=== PATIENT | male | born 1965 | race African-American/Black ===

== ENCOUNTER 2018-08-21 08:59 | Inpatient (IN) ==
[2018-08-21] MEDS ORDERED: ASPIRIN 325 MG TABLET PO STA (09:11)
[2018-08-21] MEDS ORDERED: NITROGLYCERIN 2% OINT 1 INCH/GM PACK TOP STA (09:33)
[2018-08-21] MEDS ORDERED: MORPHINE 4 MG/1 ML VIAL IV STA (09:33)
[2018-08-21] MEDS ORDERED: ONDANSETRON 4 MG/2 ML VIAL IV STA (09:33)
[2018-08-21] MEDS ORDERED: ALUM/MAG/SIMETH/LIDO VISC 1:1 30 ML BOTTLE PO STA (09:33)
[2018-08-21 09:45] LABS: Basophils # 0.1 10*3/uL (0.0-0.2); Basophils % 0.9 % (0.0-0.8); Eosinophils % 0.4 % (0.00-10.9); Hematocrit 35.4 VOL% (42.0-52.0); Hemoglobin 12.3 GM/DL (14.0-18.0); Immature Granulocytes % 0.6 %; Immature Granulocytes Absolute 0.04 #; Lymphocytes # 2.6 10*3/uL (1.4-4.0); Lymphocytes % 38.7 % (21.2-54.2); Mean Corpuscular HGB Conc 34.7 GM/DL (32-36); Mean Corpuscular Volume 92.7 FL (87-102); Mean Platelet Volume 11.3 FL (9.6-12.0); Monocytes % 13.5 % (1.7-12.7); NRBC # 0.03 10*3/uL; Neutrophils % 45.9 % (38.7-73.9); Platelet Count 115 T/CUMM (130-400); Red Blood Count 3.82 MC/CUMM (3.8-5.5); Red Cell Distribution Width 17.3 % (9.3-17.3); White Blood Count 6.7 T/CUMM (4-12)
[2018-08-21 09:52] LABS: INR 1.2; PT Patient Result 13.1 SECS
[2018-08-21 10:12] LABS: Albumin 3.8 G/DL (3.4-5.0); Bilirubin,Total 1.3 MG/DL (0.2-1.0); Calcium 9.1 MG/DL (8.5-10.1); Osmolality,Calculated 275.4 MOS/KG (273-304); Total Protein 9.2 G/DL (6.4-8.3)
[2018-08-21] MEDS ORDERED: THIAMINE INJ 100 MG, FOLIC ACID INJ 1 MG, MAGNESIUM SULF INJ 2 GM, MULTIVITAMIN INJ 10 ... IV ONE (10:44)
[2018-08-21 10:49] LABS: Apearance,Urine CLEAR (Clear); Bilirubin,Urine Negative (Negative); Blood, Urine Small mg/dL (Negative); Glucose,Urine (UA) Negative (Negative); Ketones,Urine 5 mg/dL (Negative); Nitrite,Urine Negative (Negative); Protein,Urine 100 MG/DL; RBC,Urine 9 /HPF (0-4); Squamous Epithelial Cell,Urine Occasional /HPF (0-10); Urine Color Yellow (Yellow); Urine Specific Gravity 1.011 (1.001-1.035); WBC,Urine 1 /HPF (0-6)
[2018-08-21 10:58] LABS: Barbiturates Screen,Urine Negative (Negative); Benzodiazepines Screen,Urine Negative (Negative); Cannabinoid Screen,Urine Negative (Negative); Opiate Screen,Urine Negative (Negative); Phencyclidine Screen,Urine Negative (Negative)
[2018-08-21] MEDS ORDERED: MORPHINE 4 MG/1 ML VIAL IV PRN (11:50)
[2018-08-21] MEDS ORDERED: BISACODYL 5 MG TABLET PO PRN (11:50)
[2018-08-21] MEDS ORDERED: ONDANSETRON 4 MG/2 ML VIAL IV PRN (11:50)
[2018-08-21] MEDS ORDERED: LORazepam 2 MG/1 ML VIAL IV PRN (11:57)
[2018-08-21] MEDS ORDERED: MAGNESIUM SULF RIDER 2 GM in PREMIX 1 EACH IV PRN (12:15)
[2018-08-21] MEDS ORDERED: MAGNESIUM SULF RIDER 4 GM in PREMIX 1 EACH IV PRN (12:15)
[2018-08-21 12:46] LABS: INR 1.2; PT Patient Result 13.2 SECS
[2018-08-21 12:47] LABS: Risk Ratio 5.12; VLDL CHOLESTEROL 21.8 MG/DL
[2018-08-21] MEDS: ENOXAPARIN 40 MG/0.4 ML SYRINGE SUBCUT SCH (13:49)
[2018-08-21] MEDS: SODIUM CHLORIDE 0.9% 1,000 ML IV SCH (13:49)
[2018-08-21] MEDS: chlordiazePOXIDE 25 MG CAPSULE PO SCH ×3 (17:49→20:55)
[2018-08-21 20:33] LABS: Hepatitis B Core IgM Quant 1.14 Index; Hepatitis B Surface Ag Quant < 0.10 Index; Hepatitis B Surface Ag Result Negative (Negative); Hepatitis C Virus Ab Quant 0.14 Index; Hepatitis C Virus Ab Result Negative (Negative)
[2018-08-21] MEDS: PANTOPRAZOLE 40 MG TABLET PO SCH (20:55)
[2018-08-22 05:59] LABS: Basophils % 0.6 % (0.0-0.8); Eosinophils # 0.1 10*3/uL (0.0-0.87); Eosinophils % 1.2 % (0.00-10.9); Hematocrit 30.9 VOL% (42.0-52.0); Hemoglobin 10.3 GM/DL (14.0-18.0); Immature Granulocytes % 0.4 %; Immature Granulocytes Absolute 0.02 #; Lymphocytes # 1.8 10*3/uL (1.4-4.0); Lymphocytes % 35.5 % (21.2-54.2); Mean Corpuscular HGB Conc 33.3 GM/DL (32-36); Mean Corpuscular Volume 94.8 FL (87-102); Mean Platelet Volume 12.2 FL (9.6-12.0); Monocytes % 15.9 % (1.7-12.7); NRBC # 0.03 10*3/uL; Neutrophils % 46.4 % (38.7-73.9); Platelet Count 93 T/CUMM (130-400); Red Blood Count 3.26 MC/CUMM (3.8-5.5); Red Cell Distribution Width 16.9 % (9.3-17.3)
[2018-08-22 06:35] LABS: Anisocytosis 2+; Band Neutrophils 2 % (0-10); Eosinophils 4 % (0-10); Hypochromasia 2+; Lymphocytes 43 % (20-55); Microcytosis 1+; Ovalocytes 1+; Platelet Estimate Decreased; Segmented Neutrophils 47 % (50-85); Smudge Cells Few; Target Cells 2+; Total Cells Counted 100
[2018-08-22 06:45] LABS: Albumin 2.6 G/DL (3.4-5.0); Bilirubin,Total 1.8 MG/DL (0.2-1.0); Calcium 7.8 MG/DL (8.5-10.1); Osmolality,Calculated 273.5 MOS/KG (273-304)
[2018-08-22] MEDS ORDERED: PROPOFOL 200 MG/20 ML VIAL IV ONE (09:00)
[2018-08-22] MEDS ORDERED: LIDOCAINE 2% 5 ML VIAL ONE (09:00)
[2018-08-22] MEDS ORDERED: ETOMIDATE 20 MG/10 ML VIAL IV ONE (09:00)
[2018-08-22] MEDS: chlordiazePOXIDE 25 MG CAPSULE PO SCH ×4 (09:24→21:00)
[2018-08-22] MEDS: SODIUM CHLORIDE 0.9% 1,000 ML IV SCH ×3 (09:25→18:19)
[2018-08-22] MEDS: MULTIVITAMIN (CENTRUM) TABLET PO SCH (14:06)
[2018-08-22] MEDS: ENOXAPARIN 40 MG/0.4 ML SYRINGE SUBCUT SCH (14:06)
[2018-08-22] MEDS: FOLIC ACID 1 MG TABLET PO SCH (14:06)
[2018-08-22] MEDS: PANTOPRAZOLE 40 MG TABLET PO SCH ×2 (14:06→21:00)
[2018-08-22] MEDS: THIAMINE 100 MG TABLET PO SCH (14:06)
[2018-08-23] MEDS: SODIUM CHLORIDE 0.9% 1,000 ML IV SCH ×2 (06:43→06:53)
[2018-08-23] MEDS: chlordiazePOXIDE 25 MG CAPSULE PO SCH (09:00)
[2018-08-23] MEDS: PANTOPRAZOLE 40 MG TABLET PO SCH (09:01)
[2018-08-23] MEDS: FOLIC ACID 1 MG TABLET PO SCH (09:01)
[2018-08-23] MEDS: MULTIVITAMIN (CENTRUM) TABLET PO SCH (09:01)
[2018-08-23] MEDS: THIAMINE 100 MG TABLET PO SCH (09:01)
[2018-08-23 11:42] VITALS: BP 105/64
== END 2018-08-23 12:00 | disposition home or self-care (01) | DRG 392 ==
LOC: EDBD → N.ED 08:59 → N.EDINP 11:50 → N.TELES 15:23
PROVIDERS: ADMIT Internal Medicine; ATTEND Internal Medicine

== ENCOUNTER 2019-04-25 16:36 | Inpatient (IN) ==
[2019-04-25] MEDS ORDERED: SODIUM CHLORIDE 0.9% 1,000 ML IV STA (17:24)
[2019-04-25] MEDS ORDERED: ONDANSETRON 4 MG/2 ML VIAL IV STA (17:25)
[2019-04-25 17:38] LABS: INR 1.5; PT Patient Result 15.9 SECS (9.6-12.2); Partial Thromboplastin Time 33.2 SECS (20.8-36.0)
[2019-04-25 17:39] LABS: Basophils # 0.1 10*3/uL (0.0-0.2); Basophils % 0.5 % (0.0-0.8); Eosinophils % 0.3 % (0.00-10.9); Hematocrit 28.4 VOL% (42.0-52.0); Hemoglobin 9.9 GM/DL (14.0-18.0); Immature Granulocytes % 0.4 %; Immature Granulocytes Absolute 0.04 #; Lymphocytes # 4.3 10*3/uL (1.4-4.0); Lymphocytes % 46.8 % (21.2-54.2); Mean Corpuscular HGB Conc 34.9 GM/DL (32-36); Mean Corpuscular Volume 90.7 FL (87-102); Monocytes % 11.1 % (1.7-12.7); NRBC # 0.04 10*3/uL; Neutrophils % 40.9 % (38.7-73.9); Red Blood Count 3.13 MC/CUMM (3.8-5.5); Red Cell Distribution Width 19.1 % (9.3-17.3); White Blood Count 9.2 T/CUMM (4-12)
[2019-04-25] MEDS ORDERED: METOCLOPRAMIDE 10 MG/2 ML VIAL IV STA (17:40)
[2019-04-25] MEDS ORDERED: PANTOPRAZOLE 40 MG VIAL IV STA (17:40)
[2019-04-25 17:44] LABS: Platelet Count 68 T/CUMM (130-400)
[2019-04-25 17:45] LABS: Albumin 2.7 G/DL (3.4-5.0); Bilirubin,Total 1.9 MG/DL (0.2-1.0); Calcium 8.3 MG/DL (8.5-10.1); Osmolality,Calculated 267.1 MOS/KG (273-304); Total Protein 8.3 G/DL (6.4-8.3)
[2019-04-25 18:16] LABS: Hypochromasia 1+; Platelet Estimate Decreased; Polychromasia Few; Target Cells 1+
[2019-04-25 18:42] LABS: Apearance,Urine CLEAR (Clear); Bacteria,Urine Occasional /HPF (Few); Bilirubin,Urine Small mg/dL (Negative); Blood, Urine Small mg/dL (Negative); Glucose,Urine (UA) Negative (Negative); Ketones,Urine 20 mg/dL (Negative); Mucus,Urine Occasional /LPF (Occasional); Nitrite,Urine Negative (Negative); Protein,Urine 100 MG/DL; RBC,Urine 6 /HPF (0-4); Squamous Epithelial Cell,Urine Occasional /HPF (0-10); Urine Color Yellow (Yellow); Urine Specific Gravity 1.023 (1.001-1.035); WBC,Urine 11 /HPF (0-6)
[2019-04-25 18:51] LABS: Barbiturates Screen,Urine Negative (Negative); Benzodiazepines Screen,Urine Negative (Negative); Cannabinoid Screen,Urine Negative (Negative); Opiate Screen,Urine Negative (Negative); Phencyclidine Screen,Urine Negative (Negative)
[2019-04-25] MEDS ORDERED: ONDANSETRON 4 MG/2 ML VIAL IV PRN (19:30)
[2019-04-25] MEDS ORDERED: LORazepam 2 MG/1 ML VIAL IV PRN (19:35)
[2019-04-25] MEDS ORDERED: chlordiazePOXIDE 25 MG CAPSULE PO PRN (19:35)
[2019-04-25] MEDS ORDERED: LABETALOL 20 MG/4 ML SYRINGE IV PRN (19:39)
[2019-04-25] MEDS ORDERED: LACTULOSE 20 GM/30 ML UDCUP PO PRN (19:43)
[2019-04-25] MEDS ORDERED: SODIUM CHLORIDE 0.9% 1,000 ML IV PRN ×2 (20:09→20:11)
[2019-04-25] MEDS ORDERED: cefTRIAXone 1,000 MG VIAL ONE (20:27)
[2019-04-25] MEDS: cefTRIAXone 1,000 MG in SYRINGE 1 EACH IV SCH (20:30)
[2019-04-25] MEDS: DEXTROSE 5% NACL 0.45% 1,000 ML IV SCH (20:32)
[2019-04-25] MEDS ORDERED: OCTREOTIDE 500 MCG in SODIUM CHLORIDE 0.9% 100 ML IV SCH (21:00)
[2019-04-25] MEDS ORDERED: PANTOPRAZOLE INJ 200 MG in SODIUM CHLORIDE 0.9% 250 ML IV SCH (21:00)
[2019-04-25 21:13] LABS: Troponin I 0.503 NG/ML (0.00-0.045)
[2019-04-25 21:41] LABS: Folate 5.8 NG/ML (5.4-24.0)
[2019-04-25] MEDS: DOCUSATE SODIUM 100 MG/10 ML UDCUP PO SCH (22:02)
[2019-04-25] MEDS: PROMETHAZINE 25 MG/1 ML VIAL IM PRN (22:16)
[2019-04-26 03:16] LABS: Basophils % 0.3 % (0.0-0.8); Eosinophils % 0.1 % (0.00-10.9); Hemoglobin 7.7 GM/DL (14.0-18.0); Immature Granulocytes % 0.4 %; Immature Granulocytes Absolute 0.03 #; Lymphocytes % 29.1 % (21.2-54.2); Mean Corpuscular HGB Conc 33.5 GM/DL (32-36); Mean Corpuscular Volume 94.3 FL (87-102); Monocytes % 12.1 % (1.7-12.7); NRBC # 0.03 10*3/uL; Platelet Count 50 T/CUMM (130-400); Red Blood Count 2.44 MC/CUMM (3.8-5.5); Red Cell Distribution Width 17.3 % (9.3-17.3)
[2019-04-26 03:30] LABS: INR 1.6; PT Patient Result 17.6 SECS (9.6-12.2)
[2019-04-26 03:37] LABS: Troponin I 0.458 NG/ML (0.00-0.045)
[2019-04-26 03:37] LABS: Albumin 2.1 G/DL (3.4-5.0); Bilirubin,Total 2.2 MG/DL (0.2-1.0); Calcium 7.4 MG/DL (8.5-10.1); Osmolality,Calculated 277.7 MOS/KG (273-304); Total Protein 6.1 G/DL (6.4-8.3)
[2019-04-26 03:49] LABS: Band Neutrophils 1 % (0-10); Eosinophils 1 % (0-10); Lymphocytes 26 % (20-55); Nucleated Red Blood Cells 1 (0-5); Segmented Neutrophils 63 % (50-85); Total Cells Counted 100
[2019-04-26 03:50] LABS: Hypochromasia 1+; Platelet Estimate Decreased
[2019-04-26] MEDS ORDERED: SODIUM CHLORIDE 0.9% 1,000 ML IV PRN (04:00)
[2019-04-26 05:03] LABS: Hepatitis B Surface Ag Quant 0.17 Index; Hepatitis B Surface Ag Result Negative (Negative); Hepatitis C Virus Ab Quant 0.09 Index; Hepatitis C Virus Ab Result Negative (Negative)
[2019-04-26] MEDS: PROMETHAZINE 25 MG/1 ML VIAL IM PRN (05:04)
[2019-04-26] MEDS ORDERED: NOREPINEPHRINE 8 MG in SODIUM CHLORIDE 0.9% 242 ML IV PRN (05:50)
[2019-04-26] MEDS ORDERED: SODIUM CHLORIDE 0.9% 500 ML IV ONE (05:50)
[2019-04-26] MEDS: DEXTROSE 5% NACL 0.45% 1,000 ML IV SCH ×2 (06:30→15:13)
[2019-04-26 07:16] LABS: Hepatitis B Core IgM Quant 0.74 Index
[2019-04-26] MEDS ORDERED: ETOMIDATE 20 MG/10 ML VIAL IV ONE (09:00)
[2019-04-26] MEDS ORDERED: LIDOCAINE 2% 5 ML VIAL ONE (09:00)
[2019-04-26] MEDS ORDERED: propofoL 200 MG/20 ML VIAL IV ONE (09:00)
[2019-04-26] MEDS ORDERED: LACTATED RINGERS 1,000 ML IV SCH (10:00)
[2019-04-26] MEDS: MULTIVITAMIN (CENTRUM) TABLET PO SCH (10:15)
[2019-04-26] MEDS: DOCUSATE SODIUM 100 MG/10 ML UDCUP PO SCH ×2 (10:15→20:50)
[2019-04-26] MEDS: FOLIC ACID 1 MG TABLET PO SCH (10:19)
[2019-04-26] MEDS: THIAMINE 200 MG/2 ML VIAL IV SCH (10:26)
[2019-04-26] MEDS: LACTULOSE 20 GM/30 ML UDCUP PO SCH ×3 (10:27→20:50)
[2019-04-26] MEDS ORDERED: MIDAZOLAM 2 MG/2 ML VIAL ONE (11:37)
[2019-04-26 14:35] LABS: Hematocrit 20.8 VOL% (42.0-52.0); Hemoglobin 7.2 GM/DL (14.0-18.0)
[2019-04-26] MEDS: SODIUM CHLORIDE 0.9% 1,000 ML IV SCH (15:15)
[2019-04-26] MEDS: chlordiazePOXIDE 10 MG CAPSULE PO SCH ×2 (15:23→20:49)
[2019-04-26] MEDS: PROPRANOLOL 10 MG TABLET PO SCH ×2 (15:23→20:49)
[2019-04-26] MEDS: cefTRIAXone 1,000 MG in SYRINGE 1 EACH IV SCH (20:50)
[2019-04-26] MEDS: PANTOPRAZOLE 40 MG TABLET PO SCH (20:52)
[2019-04-26 23:25] LABS: Hematocrit 26.8 VOL% (42.0-52.0); Hemoglobin 9.1 GM/DL (14.0-18.0)
[2019-04-27] MEDS: SODIUM CHLORIDE 0.9% 1,000 ML IV SCH ×3 (01:31→12:53)
[2019-04-27 05:39] LABS: Calcium 7.4 MG/DL (8.5-10.1); Osmolality,Calculated 274.5 MOS/KG (273-304)
[2019-04-27 05:41] LABS: Basophils # 0.1 10*3/uL (0.0-0.2); Basophils % 0.6 % (0.0-0.8); Eosinophils # 0.1 10*3/uL (0.0-0.87); Eosinophils % 1.3 % (0.00-10.9); Hematocrit 27.6 VOL% (42.0-52.0); Hemoglobin 9.6 GM/DL (14.0-18.0); Immature Granulocytes % 0.5 %; Immature Granulocytes Absolute 0.05 #; Lymphocytes # 3.2 10*3/uL (1.4-4.0); Lymphocytes % 34.4 % (21.2-54.2); Mean Corpuscular HGB Conc 34.8 GM/DL (32-36); Mean Corpuscular Volume 87.9 FL (87-102); Mean Platelet Volume 11.6 FL (9.6-12.0); Monocytes % 8.8 % (1.7-12.7); Neutrophils % 54.4 % (38.7-73.9); Platelet Count 56 T/CUMM (130-400); Red Blood Count 3.14 MC/CUMM (3.8-5.5); White Blood Count 9.4 T/CUMM (4-12)
[2019-04-27 05:45] LABS: Albumin 1.8 G/DL (3.4-5.0); Bilirubin,Total 2.8 MG/DL (0.2-1.0); Calcium 7.4 MG/DL (8.5-10.1); Osmolality,Calculated 274.5 MOS/KG (273-304); Total Protein 5.4 G/DL (6.4-8.3)
[2019-04-27 06:30] LABS: Anisocytosis 3+; Platelet Estimate Decreased; Target Cells Few
[2019-04-27 06:31] LABS: Polychromasia Slight
[2019-04-27] MEDS: MULTIVITAMIN (CENTRUM) TABLET PO SCH (08:54)
[2019-04-27] MEDS: PROPRANOLOL 10 MG TABLET PO SCH ×3 (08:54→21:10)
[2019-04-27] MEDS: chlordiazePOXIDE 10 MG CAPSULE PO SCH ×3 (08:54→21:11)
[2019-04-27] MEDS: PANTOPRAZOLE 40 MG TABLET PO SCH ×2 (08:54→21:11)
[2019-04-27] MEDS: THIAMINE 200 MG/2 ML VIAL IV SCH (08:55)
[2019-04-27] MEDS: LACTULOSE 20 GM/30 ML UDCUP PO SCH ×3 (09:54→21:11)
[2019-04-27] MEDS: DOCUSATE SODIUM 100 MG/10 ML UDCUP PO SCH ×2 (09:55→21:11)
[2019-04-27] MEDS: FOLIC ACID 1 MG TABLET PO SCH (09:56)
[2019-04-27] MEDS: cefTRIAXone 1,000 MG in SYRINGE 1 EACH IV SCH (21:10)
[2019-04-28 06:55] LABS: Basophils % 0.5 % (0.0-0.8); Eosinophils # 0.1 10*3/uL (0.0-0.87); Eosinophils % 1.5 % (0.00-10.9); Hematocrit 25.3 VOL% (42.0-52.0); Hemoglobin 8.6 GM/DL (14.0-18.0); Immature Granulocytes % 0.7 %; Immature Granulocytes Absolute 0.06 #; Lymphocytes # 2.6 10*3/uL (1.4-4.0); Lymphocytes % 30.1 % (21.2-54.2); Mean Corpuscular Volume 89.1 FL (87-102); Mean Platelet Volume 11.2 FL (9.6-12.0); Monocytes % 10.7 % (1.7-12.7); NRBC # 0.09 10*3/uL; Neutrophils % 56.5 % (38.7-73.9); Platelet Count 66 T/CUMM (130-400); Red Blood Count 2.84 MC/CUMM (3.8-5.5); Red Cell Distribution Width 16.8 % (9.3-17.3); White Blood Count 8.6 T/CUMM (4-12)
[2019-04-28 07:19] LABS: Bilirubin,Total 2.7 MG/DL (0.2-1.0); Calcium 7.4 MG/DL (8.5-10.1); Osmolality,Calculated 272.7 MOS/KG (273-304); Total Protein 5.6 G/DL (6.4-8.3)
[2019-04-28 09:17] LABS: Anisocytosis 2+; Hypochromasia 1+; Macrocytosis 1+; Microcytosis 1+; Polychromasia Slight; Target Cells 2+
[2019-04-28 09:18] LABS: Platelet Estimate Decreased
[2019-04-28] MEDS: THIAMINE 200 MG/2 ML VIAL IV SCH (10:00)
[2019-04-28] MEDS: LACTULOSE 20 GM/30 ML UDCUP PO SCH (10:00)
[2019-04-28] MEDS: chlordiazePOXIDE 10 MG CAPSULE PO SCH (10:01)
[2019-04-28] MEDS: DOCUSATE SODIUM 100 MG/10 ML UDCUP PO SCH (10:01)
[2019-04-28] MEDS: PROPRANOLOL 10 MG TABLET PO SCH (10:01)
[2019-04-28] MEDS: PANTOPRAZOLE 40 MG TABLET PO SCH (10:01)
[2019-04-28] MEDS: MULTIVITAMIN (CENTRUM) TABLET PO SCH (10:01)
[2019-04-28] MEDS: FOLIC ACID 1 MG TABLET PO SCH (10:01)
[2019-04-28 12:15] VITALS: BP 112/66
== END 2019-04-28 13:58 | disposition home or self-care (01) | DRG 368 ==
LOC: N.ED 16:36 → N.EDINP 19:27 → SUATTDRO 19:27 → N.CC 20:35 → N.2E 04-27 11:55
PROVIDERS: ADMIT Internal Medicine; ATTEND Family Medicine

== ENCOUNTER 2019-06-17 09:38 | Inpatient (IN) ==
[2019-06-17 11:30] LABS: Basophils # 0.1 10*3/uL (0.0-0.2); Eosinophils # 0.1 10*3/uL (0.0-0.87); Eosinophils % 0.7 % (0.00-10.9); Hemoglobin 10.6 GM/DL (14.0-18.0); Immature Granulocytes % 0.5 %; Immature Granulocytes Absolute 0.04 #; Lymphocytes # 3.1 10*3/uL (1.4-4.0); Lymphocytes % 38.1 % (21.2-54.2); Mean Corpuscular HGB Conc 33.1 GM/DL (32-36); Mean Corpuscular Volume 92.2 FL (87-102); Mean Platelet Volume 10.2 FL (9.6-12.0); Monocytes % 16.4 % (1.7-12.7); Neutrophils % 43.3 % (38.7-73.9); Platelet Count 123 T/CUMM (130-400); Red Blood Count 3.47 MC/CUMM (3.8-5.5); Red Cell Distribution Width 23.2 % (9.3-17.3); White Blood Count 8.1 T/CUMM (4-12)
[2019-06-17 11:50] LABS: Albumin 1.9 G/DL (3.4-5.0); Bilirubin,Direct 2.43 MG/DL (0.0-0.20); Bilirubin,Indirect 1.3 MG/DL (0.0-1.0); Bilirubin,Total 3.7 MG/DL (0.2-1.0); Calcium 7.7 MG/DL (8.5-10.1); Osmolality,Calculated 264.2 MOS/KG (273-304); Total Protein 8.4 G/DL (6.4-8.3)
[2019-06-17 11:56] LABS: Atypical Lymphocytes Few; Band Neutrophils 1 % (0-10); Eosinophils 3 % (0-10); Lymphocytes 26 % (20-55); Segmented Neutrophils 58 % (50-85); Total Cells Counted 100
[2019-06-17 11:57] LABS: Anisocytosis 1+; Hypochromasia 1+; Polychromasia Slight; Target Cells Few
[2019-06-17 11:58] LABS: Platelet Estimate Adequate
[2019-06-17] MEDS ORDERED: DEXTROSE 50% 25 GM/50 ML VIAL IV PRN (15:49)
[2019-06-17] MEDS ORDERED: GLUCAGON 1 MG VIAL IM PRN (15:49)
[2019-06-17] MEDS ORDERED: ONDANSETRON 4 MG/2 ML VIAL IV PRN (15:49)
[2019-06-17] MEDS ORDERED: LORazepam 0.5 MG TABLET PO PRN (16:06)
[2019-06-17 16:21] LABS: INR 1.7; PT Patient Result 18.2 SECS (9.8-11.9); Partial Thromboplastin Time 37.6 SECS (23.9-33.8)
[2019-06-17] MEDS: LACTULOSE 20 GM/30 ML UDCUP PO SCH ×2 (18:00→20:15)
[2019-06-17] MEDS: RIFAXIMIN 550 MG TABLET PO SCH (21:13)
[2019-06-17] MEDS: PROPRANOLOL 10 MG TABLET PO SCH (21:13)
[2019-06-17] MEDS: SPIRONOLACTONE 25 MG TABLET PO SCH (21:13)
[2019-06-18] MEDS: LACTULOSE 20 GM/30 ML UDCUP PO SCH ×7 (01:22→23:08)
[2019-06-18 04:33] LABS: Basophils # 0.1 10*3/uL (0.0-0.2); Basophils % 0.7 % (0.0-0.8); Eosinophils # 0.1 10*3/uL (0.0-0.87); Eosinophils % 1.1 % (0.00-10.9); Hematocrit 29.3 VOL% (42.0-52.0); Hemoglobin 9.8 GM/DL (14.0-18.0); Immature Granulocytes % 0.7 %; Immature Granulocytes Absolute 0.06 #; Lymphocytes # 3.3 10*3/uL (1.4-4.0); Lymphocytes % 38.6 % (21.2-54.2); Mean Corpuscular HGB Conc 33.4 GM/DL (32-36); Mean Corpuscular Volume 91.6 FL (87-102); Mean Platelet Volume 10.7 FL (9.6-12.0); Monocytes % 17.5 % (1.7-12.7); Neutrophils % 41.4 % (38.7-73.9); Platelet Count 123 T/CUMM (130-400); Red Cell Distribution Width 22.4 % (9.3-17.3); White Blood Count 8.6 T/CUMM (4-12)
[2019-06-18 05:10] LABS: Albumin 1.6 G/DL (3.4-5.0); Bilirubin,Total 4.5 MG/DL (0.2-1.0); Osmolality,Calculated 266.1 MOS/KG (273-304); Thyroid Stimulating Hormone 9.52 uIU/ml (0.358-3.74); Total Protein 7.6 G/DL (6.4-8.3)
[2019-06-18 05:38] LABS: Atypical Lymphocytes Few; Eosinophils 6 % (0-10); Lymphocytes 32 % (20-55); Nucleated Red Blood Cells 1 (0-5); Segmented Neutrophils 49 % (50-85); Total Cells Counted 100
[2019-06-18 05:39] LABS: Hypochromasia 2+; Polychromasia Slight; Target Cells Few
[2019-06-18 05:40] LABS: Anisocytosis 1+; Platelet Estimate Adequate
[2019-06-18] MEDS ORDERED: PHYTONADIONE 10 MG/1 ML AMP SUBCUT ONE (08:30)
[2019-06-18] MEDS: FOLIC ACID 1 MG TABLET PO SCH (09:03)
[2019-06-18] MEDS: POTASSIUM CHLORIDE 20 MEQ TABLET PO SCH (09:03)
[2019-06-18] MEDS: PANTOPRAZOLE 40 MG TABLET PO SCH (09:03)
[2019-06-18] MEDS: FUROSEMIDE 40 MG TABLET PO SCH (09:03)
[2019-06-18] MEDS: SPIRONOLACTONE 25 MG TABLET PO SCH ×2 (09:03→21:35)
[2019-06-18] MEDS: THIAMINE 100 MG TABLET PO SCH (09:03)
[2019-06-18] MEDS: PROPRANOLOL 10 MG TABLET PO SCH ×3 (09:03→21:35)
[2019-06-18] MEDS: RIFAXIMIN 550 MG TABLET PO SCH ×2 (09:03→21:35)
[2019-06-18 15:30] LABS: Neutrophils,Peritoneal Fluid 8 %
[2019-06-18 15:31] LABS: RBC,Peritoneal Fluid 19 T/CUMM
[2019-06-19] MEDS: LACTULOSE 20 GM/30 ML UDCUP PO SCH ×3 (04:47→11:11)
[2019-06-19 07:03] LABS: Free T4 (Free Thyroxine) 1.5 NG/DL (0.76-1.46)
[2019-06-19] MEDS: RIFAXIMIN 550 MG TABLET PO SCH (08:31)
[2019-06-19] MEDS: POTASSIUM CHLORIDE 20 MEQ TABLET PO SCH (08:31)
[2019-06-19] MEDS: FOLIC ACID 1 MG TABLET PO SCH (08:31)
[2019-06-19] MEDS: THIAMINE 100 MG TABLET PO SCH (08:32)
[2019-06-19] MEDS: SPIRONOLACTONE 25 MG TABLET PO SCH (08:32)
[2019-06-19] MEDS: FUROSEMIDE 40 MG TABLET PO SCH (08:32)
[2019-06-19] MEDS: PROPRANOLOL 10 MG TABLET PO SCH (08:32)
[2019-06-19] MEDS: PANTOPRAZOLE 40 MG TABLET PO SCH (08:32)
[2019-06-19 08:45] LABS: Albumin 1.3 G/DL (3.4-5.0); Bilirubin,Direct 1.93 MG/DL (0.0-0.20); Bilirubin,Indirect 1.6 MG/DL (0.0-1.0); Bilirubin,Total 3.5 MG/DL (0.2-1.0); Total Protein 6.8 G/DL (6.4-8.3)
[2019-06-19 11:21] VITALS: BP 117/67
== END 2019-06-19 14:34 | disposition home or self-care (01) | DRG 433 ==
LOC: N.ED 09:38 → N.EDINP 15:49 → N.2E 17:15
PROVIDERS: ADMIT Emergency Medicine; ATTEND Emergency Medicine

== ENCOUNTER 2019-08-27 10:30 | Inpatient (IN) ==
[2019-08-27] MEDS ORDERED: ONDANSETRON 4 MG/2 ML VIAL IV STA (10:56)
[2019-08-27] MEDS ORDERED: THIAMINE INJ 100 MG, FOLIC ACID INJ 1 MG, MAGNESIUM SULF INJ 2 GM, MULTIVITAMIN INJ 10 ... IV ONE (10:56)
[2019-08-27] MEDS ORDERED: PANTOPRAZOLE 40 MG VIAL IV STA (10:56)
[2019-08-27 11:41] LABS: Basophils % 0.5 % (0.0-0.8); Eosinophils # 0.1 10*3/uL (0.0-0.87); Eosinophils % 0.7 % (0.00-10.9); Hematocrit 20.6 VOL% (42.0-52.0); Hemoglobin 6.6 GM/DL (14.0-18.0); Immature Granulocytes % 1.6 %; Immature Granulocytes Absolute 0.12 #; Lymphocytes # 2.4 10*3/uL (1.4-4.0); Lymphocytes % 32.7 % (21.2-54.2); Mean Corpuscular Volume 97.6 FL (87-102); Mean Platelet Volume 10.8 FL (9.6-12.0); Monocytes % 15.1 % (1.7-12.7); NRBC # 0.04 10*3/uL; Neutrophils % 49.4 % (38.7-73.9); Red Blood Count 2.11 MC/CUMM (3.8-5.5); Red Cell Distribution Width 21.2 % (9.3-17.3); White Blood Count 7.4 T/CUMM (4-12)
[2019-08-27 11:43] LABS: Platelet Count 87 T/CUMM (130-400)
[2019-08-27 11:48] LABS: Alanine Aminotransferase 45 U/L (16-61); Albumin 2.1 G/DL (3.4-5.0); Alkaline Phosphatase 166 U/L (45-117); Amylase 110 U/L (25-115); Aspartate Amino Transferase 221 U/L (0-37); Blood Urea Nitrogen 9 MG/DL (7-18); Calcium 7.8 MG/DL (8.5-10.1); Estimated Glom Filtration Rate 158 ML/MIN; Glucose 101 MG/DL (74-106); Osmolality,Calculated 275.5 MOS/KG (273-304); Total Protein 7.9 G/DL (6.4-8.3)
[2019-08-27 11:49] LABS: Troponin I 0.513 NG/ML (0.00-0.045)
[2019-08-27 11:56] LABS: INR 2.2; PT Patient Result 22.9 SECS (9.8-11.9)
[2019-08-27] MEDS ORDERED: ONDANSETRON 4 MG/2 ML VIAL IV PRN (12:56)
[2019-08-27] MEDS ORDERED: GLUCAGON 1 MG VIAL IM PRN (12:56)
[2019-08-27] MEDS ORDERED: DEXTROSE 10% 250 ML BAG IV PRN (12:56)
[2019-08-27] MEDS ORDERED: SODIUM CHLORIDE 0.9% 1,000 ML IV PRN (13:05)
[2019-08-27] MEDS ORDERED: diphenhydrAMINE 50 MG/1 ML VIAL IV PRN (13:05)
[2019-08-27] MEDS ORDERED: MAGNESIUM SULF RIDER 2 GM in PREMIX 1 EACH IV PRN (13:05)
[2019-08-27] MEDS ORDERED: FUROSEMIDE 20 MG/2 ML VIAL IV PRN (13:05)
[2019-08-27] MEDS ORDERED: MAGNESIUM SULF RIDER 4 GM in PREMIX 1 EACH IV PRN (13:05)
[2019-08-27] MEDS ORDERED: LORazepam 2 MG/1 ML VIAL IV PRN (13:09)
[2019-08-27] MEDS ORDERED: cefTRIAXone 1,000 MG in SODIUM CHLORIDE 0.9% 100 ML IV SCH (13:30)
[2019-08-27] MEDS: LACTULOSE 20 GM/30 ML UDCUP PO SCH ×3 (14:21→20:46)
[2019-08-27] MEDS: cefTRIAXone 2,000 MG in SYRINGE 1 EACH IV SCH (14:22)
[2019-08-27] MEDS ORDERED: IBUPROFEN 600 MG TABLET ONE (14:41)
[2019-08-27] MEDS ORDERED: IBUPROFEN 600 MG TABLET PO STA (14:51)
[2019-08-27 15:22] LABS: Hepatitis B Core IgM Quant 0.96 Index; Hepatitis B Surface Ag Quant < 0.10 Index; Hepatitis B Surface Ag Result Negative (Negative); Hepatitis C Virus Ab Quant 0.15 Index; Hepatitis C Virus Ab Result Negative (Negative)
[2019-08-27 17:29] LABS: Hematocrit 24.9 VOL% (42.0-52.0); Hemoglobin 8.2 GM/DL (14.0-18.0)
[2019-08-27] MEDS ORDERED: OCTREOTIDE 100 MCG/ML SYRINGE IV ONE (17:34)
[2019-08-27 20:36] LABS: Hematocrit 25.5 VOL% (42.0-52.0); Hemoglobin 8.5 GM/DL (14.0-18.0)
[2019-08-27] MEDS: OCTREOTIDE 500 MCG in SODIUM CHLORIDE 0.9% 100 ML IV SCH ×2 (20:45)
[2019-08-28] MEDS: LACTULOSE 20 GM/30 ML UDCUP PO SCH ×6 (00:46→21:52)
[2019-08-28 06:21] LABS: Basophils # 0.1 10*3/uL (0.0-0.2); Basophils % 0.7 % (0.0-0.8); Eosinophils # 0.2 10*3/uL (0.0-0.87); Eosinophils % 2.5 % (0.00-10.9); Hematocrit 23.4 VOL% (42.0-52.0); Hemoglobin 7.8 GM/DL (14.0-18.0); Immature Granulocytes % 0.6 %; Immature Granulocytes Absolute 0.04 #; Lymphocytes # 2.8 10*3/uL (1.4-4.0); Lymphocytes % 39.4 % (21.2-54.2); Mean Corpuscular HGB Conc 33.3 GM/DL (32-36); Mean Corpuscular Volume 93.2 FL (87-102); Mean Platelet Volume 10.6 FL (9.6-12.0); Monocytes % 11.4 % (1.7-12.7); NRBC # 0.03 10*3/uL; Neutrophils % 45.4 % (38.7-73.9); Red Blood Count 2.51 MC/CUMM (3.8-5.5); Red Cell Distribution Width 18.7 % (9.3-17.3); White Blood Count 7.2 T/CUMM (4-12)
[2019-08-28 06:27] LABS: Platelet Count 75 T/CUMM (130-400)
[2019-08-28] MEDS: OCTREOTIDE 500 MCG in SODIUM CHLORIDE 0.9% 100 ML IV SCH (06:27)
[2019-08-28 06:31] LABS: INR 2.1; PT Patient Result 21.4 SECS (9.8-11.9)
[2019-08-28 06:43] LABS: Platelet Estimate Decreased
[2019-08-28 06:44] LABS: Anisocytosis 2+; Macrocytosis 1+; Target Cells 1+
[2019-08-28 06:45] LABS: Hypochromasia 1+
[2019-08-28 06:47] LABS: Apearance,Urine CLEAR (Clear); Bilirubin,Urine Negative (Negative); Blood, Urine Small mg/dL (Negative); Glucose,Urine (UA) Negative (Negative); Hyaline Casts,Urine 3 /LPF (0-3); Ketones,Urine 5 mg/dL (Negative); Mucus,Urine Occasional /LPF (Occasional); Nitrite,Urine Negative (Negative); Protein,Urine Negative; RBC,Urine 1 /HPF (0-4); Squamous Epithelial Cell,Urine Occasional /HPF (0-10); Urine Color Amber (Yellow); Urine Specific Gravity 1.018 (1.001-1.035); WBC,Urine <1 /HPF (0-6)
[2019-08-28 06:48] LABS: Barbiturates Screen,Urine Negative (Negative); Benzodiazepines Screen,Urine Negative (Negative); Cannabinoid Screen,Urine Negative (Negative); Opiate Screen,Urine Negative (Negative); Phencyclidine Screen,Urine Negative (Negative)
[2019-08-28 06:50] LABS: Albumin 1.8 G/DL (3.4-5.0); Bilirubin,Total 5.4 MG/DL (0.2-1.0); Calcium 7.5 MG/DL (8.5-10.1); Osmolality,Calculated 273.5 MOS/KG (273-304); Risk Ratio 5.93; Thyroid Stimulating Hormone 1.46 uIU/ml (0.358-3.74); Total Protein 6.8 G/DL (6.4-8.3); VLDL CHOLESTEROL 21.2 MG/DL
[2019-08-28] MEDS: SPIRONOLACTONE 25 MG TABLET PO SCH ×2 (08:42→21:52)
[2019-08-28] MEDS: PANTOPRAZOLE 40 MG VIAL IV SCH (08:42)
[2019-08-28] MEDS: FUROSEMIDE 40 MG TABLET PO SCH (08:42)
[2019-08-28] MEDS: PROPRANOLOL 20 MG TABLET PO SCH ×2 (08:42→21:52)
[2019-08-28] MEDS: DEXTROSE 5% NACL 0.45% 1,000 ML IV SCH (08:44)
[2019-08-28] MEDS ORDERED: propofoL 200 MG/20 ML VIAL IV ONE (09:00)
[2019-08-28] MEDS ORDERED: LIDOCAINE 2% 5 ML VIAL ONE (09:00)
[2019-08-28] MEDS ORDERED: PHENYLEPHRINE 1 MG/10 ML SYRINGE IV ONE (09:00)
[2019-08-28] MEDS: cefTRIAXone 2,000 MG in SYRINGE 1 EACH IV SCH (09:25)
[2019-08-28] MEDS ORDERED: THIAMINE INJ 100 MG, FOLIC ACID INJ 1 MG, MAGNESIUM SULF INJ 2 GM, MULTIVITAMIN INJ 10 ... IV SCH (12:00)
[2019-08-28] MEDS ORDERED: LACTATED RINGERS 1,000 ML IV SCH (12:00)
[2019-08-29] MEDS: DEXTROSE 5% NACL 0.45% 1,000 ML IV SCH ×3 (00:26→08:25)
[2019-08-29] MEDS: OCTREOTIDE 500 MCG in SODIUM CHLORIDE 0.9% 100 ML IV SCH ×2 (00:27→08:20)
[2019-08-29] MEDS: LACTULOSE 20 GM/30 ML UDCUP PO SCH ×6 (02:44→20:35)
[2019-08-29 05:59] LABS: Basophils % 0.4 % (0.0-0.8); Eosinophils # 0.2 10*3/uL (0.0-0.87); Eosinophils % 3.3 % (0.00-10.9); Hematocrit 24.7 VOL% (42.0-52.0); Hemoglobin 8.5 GM/DL (14.0-18.0); Immature Granulocytes % 0.7 %; Immature Granulocytes Absolute 0.05 #; Lymphocytes # 2.7 10*3/uL (1.4-4.0); Lymphocytes % 36.8 % (21.2-54.2); Mean Corpuscular HGB Conc 34.4 GM/DL (32-36); Mean Corpuscular Volume 93.2 FL (87-102); Monocytes % 13.3 % (1.7-12.7); NRBC # 0.04 10*3/uL; Neutrophils % 45.5 % (38.7-73.9); Platelet Count 85 T/CUMM (130-400); Red Blood Count 2.65 MC/CUMM (3.8-5.5); Red Cell Distribution Width 18.8 % (9.3-17.3); White Blood Count 7.3 T/CUMM (4-12)
[2019-08-29 06:08] LABS: INR 2.2
[2019-08-29 06:17] LABS: PT Patient Result 22.4 SECS (9.8-11.9)
[2019-08-29 06:18] LABS: Albumin 1.8 G/DL (3.4-5.0); Bilirubin,Total 5.1 MG/DL (0.2-1.0); Calcium 7.6 MG/DL (8.5-10.1); Osmolality,Calculated 276.7 MOS/KG (273-304)
[2019-08-29 06:42] LABS: Anisocytosis 2+; Band Neutrophils 9 % (0-10); Eosinophils 5 % (0-10); Lymphocytes 27 % (20-55); Metamyelocytes 2 %; Nucleated Red Blood Cells 1 (0-5); Platelet Estimate Decreased; Segmented Neutrophils 51 % (50-85); Smudge Cells 1+; Total Cells Counted 100
[2019-08-29 06:43] LABS: Basophilic Stippling Slight; Macrocytosis 1+; Polychromasia Slight; Target Cells 1+
[2019-08-29] MEDS: FUROSEMIDE 40 MG TABLET PO SCH (08:20)
[2019-08-29] MEDS: SPIRONOLACTONE 25 MG TABLET PO SCH ×2 (08:20→20:35)
[2019-08-29] MEDS: PROPRANOLOL 20 MG TABLET PO SCH ×2 (08:20→20:35)
[2019-08-29] MEDS: PANTOPRAZOLE 40 MG VIAL IV SCH (08:21)
[2019-08-29] MEDS: cefTRIAXone 2,000 MG in SYRINGE 1 EACH IV SCH (08:21)
[2019-08-29] MEDS: MAGNESI IV SCH (10:14)
[2019-08-29] MEDS: THIAMINE 100 MG IV SCH (10:14)
[2019-08-29] MEDS: FOLIC ACID IV SCH (10:14)
[2019-08-29] MEDS: NACL 0.45% IV SCH (10:14)
[2019-08-29] MEDS: DEXTROSE 5% IV SCH (10:14)
[2019-08-29] MEDS ORDERED: OCTREOTIDE 500 MCG in SODIUM CHLORIDE 0.9% 100 ML IV SCH (11:00)
[2019-08-30] MEDS: MAGNESI IV SCH (02:31)
[2019-08-30] MEDS: NACL 0.45% IV SCH (02:31)
[2019-08-30] MEDS: DEXTROSE 5% IV SCH (02:31)
[2019-08-30] MEDS: THIAMINE 100 MG IV SCH (02:31)
[2019-08-30] MEDS: LACTULOSE 20 GM/30 ML UDCUP PO SCH ×3 (02:31→09:26)
[2019-08-30] MEDS: FOLIC ACID IV SCH (02:31)
[2019-08-30 04:32] LABS: Basophils % 0.5 % (0.0-0.8); Eosinophils # 0.3 10*3/uL (0.0-0.87); Eosinophils % 3.8 % (0.00-10.9); Hematocrit 29.2 VOL% (42.0-52.0); Hemoglobin 9.7 GM/DL (14.0-18.0); Immature Granulocytes % 0.5 %; Immature Granulocytes Absolute 0.04 #; Lymphocytes % 38.5 % (21.2-54.2); Mean Corpuscular HGB Conc 33.2 GM/DL (32-36); Mean Corpuscular Volume 95.7 FL (87-102); Mean Platelet Volume 10.9 FL (9.6-12.0); Monocytes % 13.7 % (1.7-12.7); NRBC # 0.05 10*3/uL; Platelet Count 101 T/CUMM (130-400); Red Blood Count 3.05 MC/CUMM (3.8-5.5); Red Cell Distribution Width 18.8 % (9.3-17.3); White Blood Count 7.7 T/CUMM (4-12)
[2019-08-30 05:04] LABS: Albumin 1.7 G/DL (3.4-5.0); Bilirubin,Total 4.6 MG/DL (0.2-1.0); Calcium 7.7 MG/DL (8.5-10.1); Osmolality,Calculated 267.1 MOS/KG (273-304); Total Protein 7.2 G/DL (6.4-8.3)
[2019-08-30 05:25] LABS: INR 2.2; PT Patient Result 22.5 SECS (9.8-11.9)
[2019-08-30 05:33] LABS: Hypochromasia 1+; Macrocytosis 1+; Target Cells 1+
[2019-08-30 05:34] LABS: Platelet Estimate Decreased; Polychromasia Slight
[2019-08-30] MEDS ORDERED: SODIUM CHLORIDE 0.9% 1,000 ML IV PRN (08:52)
[2019-08-30] MEDS ORDERED: PHYTONADIONE 10 MG/1 ML AMP SUBCUT ONE (08:54)
[2019-08-30] MEDS: SPIRONOLACTONE 25 MG TABLET PO SCH (09:25)
[2019-08-30] MEDS: FUROSEMIDE 40 MG TABLET PO SCH (09:25)
[2019-08-30] MEDS: POTASSIUM CHLORIDE 20 MEQ TABLET PO PRN ×3 (09:25→13:50)
[2019-08-30] MEDS: PROPRANOLOL 20 MG TABLET PO SCH (09:26)
[2019-08-30] MEDS: PANTOPRAZOLE 40 MG VIAL IV SCH (09:26)
[2019-08-30] MEDS: cefTRIAXone 2,000 MG in SYRINGE 1 EACH IV SCH (09:26)
[2019-08-30 11:38] VITALS: BP 100/61
[2019-08-30] MEDS ORDERED: LACTULOSE 20 GM/30 ML UDCUP PO SCH (14:00)
== END 2019-08-30 15:53 | disposition home or self-care (01) | DRG 432 ==
LOC: N.ED 10:30 → N.EDINP 12:56 → N.3E 16:55
PROVIDERS: ADMIT Emergency Medicine; ATTEND Emergency Medicine
PROC: EGDWEBL (ICD-10-PCS; 2019-08-28 10:35)

== ENCOUNTER 2019-10-13 15:33 | Inpatient (IN) ==
[2019-10-13] MEDS ORDERED: THIAMINE 200 MG/2 ML VIAL IV STA (16:05)
[2019-10-13 17:19] LABS: Basophils # 0.1 10*3/uL (0.0-0.2); Basophils % 0.7 % (0.0-0.8); Eosinophils # 0.1 10*3/uL (0.0-0.87); Eosinophils % 1.5 % (0.00-10.9); Hematocrit 26.8 VOL% (42.0-52.0); Immature Granulocytes % 1.3 %; Immature Granulocytes Absolute 0.09 #; Lymphocytes # 1.8 10*3/uL (1.4-4.0); Lymphocytes % 26.9 % (21.2-54.2); Mean Corpuscular HGB Conc 33.6 GM/DL (32-36); Mean Corpuscular Volume 96.8 FL (87-102); Mean Platelet Volume 9.8 FL (9.6-12.0); Monocytes % 20.3 % (1.7-12.7); NRBC # 0.02 10*3/uL; Neutrophils % 49.3 % (38.7-73.9); Platelet Count 107 T/CUMM (130-400); Red Blood Count 2.77 MC/CUMM (3.8-5.5); Red Cell Distribution Width 23.9 % (9.3-17.3); White Blood Count 6.8 T/CUMM (4-12)
[2019-10-13 17:33] LABS: PT Patient Result 20.3 SECS (9.8-11.9)
[2019-10-13 17:34] LABS: Albumin 1.5 G/DL (3.4-5.0); Calcium 7.9 MG/DL (8.5-10.1); Total Protein 8.9 G/DL (6.4-8.3)
[2019-10-13] MEDS ORDERED: ONDANSETRON 4 MG/2 ML VIAL ONE (17:47)
[2019-10-13] MEDS ORDERED: MORPHINE 4 MG/1 ML VIAL ONE (17:48)
[2019-10-13 17:52] LABS: Eosinophils 4 % (0-10); Lymphocytes 21 % (20-55); Segmented Neutrophils 60 % (50-85); Total Cells Counted 100
[2019-10-13 17:53] LABS: Platelet Estimate Adequate
[2019-10-13 17:54] LABS: Hypochromasia 1+; Polychromasia Few; Target Cells Few
[2019-10-13] MEDS ORDERED: GLUCAGON 1 MG VIAL IM PRN (18:12)
[2019-10-13] MEDS ORDERED: diphenhydrAMINE CAP 25 MG CAPSULE PO PRN (18:12)
[2019-10-13] MEDS ORDERED: DOCUSATE SODIUM 100 MG CAPSULE PO PRN (18:12)
[2019-10-13] MEDS ORDERED: DEXTROSE 50% 25 GM/50 ML VIAL IV PRN (18:12)
[2019-10-13] MEDS ORDERED: ONDANSETRON 4 MG/2 ML VIAL IV PRN (18:12)
[2019-10-13] MEDS ORDERED: hydrALAZINE 20 MG/1 ML VIAL IV PRN (18:12)
[2019-10-13] MEDS ORDERED: PROMETHAZINE 25 MG/1 ML VIAL IM PRN (18:12)
[2019-10-13] MEDS ORDERED: ONDANSETRON 4 MG/2 ML VIAL IV STA (18:28)
[2019-10-13] MEDS ORDERED: MORPHINE 4 MG/1 ML VIAL IV STA (18:28)
[2019-10-13] MEDS ORDERED: POTASSIUM CHLORIDE 20 MEQ TABLET PO PRN (18:35)
[2019-10-13] MEDS ORDERED: MAGNESIUM SULF RIDER 2 GM in PREMIX 1 EACH IV PRN (18:35)
[2019-10-13] MEDS ORDERED: MAGNESIUM SULF RIDER 4 GM in PREMIX 1 EACH IV PRN (18:35)
[2019-10-13] MEDS ORDERED: ALBUMIN 25% 25 GM in PREMIX 1 EACH IV ONE (19:00)
[2019-10-13] MEDS: LACTULOSE 20 GM/30 ML UDCUP PO SCH (19:45)
[2019-10-13] MEDS: FUROSEMIDE 40 MG/4 ML VIAL IV SCH (19:57)
[2019-10-13] MEDS: cefTRIAXone 1,000 MG in SODIUM CHLORIDE 0.9% 100 ML IV SCH (22:50)
[2019-10-14] MEDS: ENOXAPARIN 40 MG/0.4 ML SYRINGE SUBCUT SCH ×2 (00:22→21:09)
[2019-10-14] MEDS: LACTULOSE 20 GM/30 ML UDCUP PO SCH ×4 (00:23→10:22)
[2019-10-14 02:46] LABS: Basophils # 0.1 10*3/uL (0.0-0.2); Basophils % 0.8 % (0.0-0.8); Eosinophils # 0.2 10*3/uL (0.0-0.87); Eosinophils % 2.6 % (0.00-10.9); Hematocrit 21.5 VOL% (42.0-52.0); Hemoglobin 7.1 GM/DL (14.0-18.0); Immature Granulocytes % 1.1 %; Immature Granulocytes Absolute 0.08 #; Lymphocytes # 2.2 10*3/uL (1.4-4.0); Lymphocytes % 30.7 % (21.2-54.2); Mean Corpuscular Volume 97.7 FL (87-102); Mean Platelet Volume 9.6 FL (9.6-12.0); Monocytes % 21.5 % (1.7-12.7); NRBC # 0.02 10*3/uL; Neutrophils % 43.3 % (38.7-73.9); Platelet Count 102 T/CUMM (130-400); Red Cell Distribution Width 24.1 % (9.3-17.3); White Blood Count 7.2 T/CUMM (4-12)
[2019-10-14 03:09] LABS: Albumin 1.7 G/DL (3.4-5.0); Bilirubin,Total 4.6 MG/DL (0.2-1.0); Calcium 7.6 MG/DL (8.5-10.1); Osmolality,Calculated 268.1 MOS/KG (273-304); Risk Ratio 4.33; Thyroid Stimulating Hormone 11.9 uIU/ml (0.358-3.74); Total Protein 8.2 G/DL (6.4-8.3); VLDL CHOLESTEROL 17.4 MG/DL
[2019-10-14 03:39] LABS: Band Neutrophils 2 % (0-10); Eosinophils 5 % (0-10); Lymphocytes 19 % (20-55); Nucleated Red Blood Cells 1 (0-5); Segmented Neutrophils 67 % (50-85); Total Cells Counted 100
[2019-10-14 03:46] LABS: Anisocytosis 3+; Macrocytosis 2+; Microcytosis 1+; Polychromasia Few; Target Cells 3+
[2019-10-14 03:47] LABS: Hypochromasia 1+; Platelet Estimate Normal
[2019-10-14 03:48] LABS: Smudge Cells Few
[2019-10-14] MEDS: SPIRONOLACTONE 100 MG TABLET PO SCH (08:20)
[2019-10-14] MEDS: FUROSEMIDE 40 MG/4 ML VIAL IV SCH (08:21)
[2019-10-14 10:26] LABS: Barbiturates Screen,Urine Negative (Negative); Benzodiazepines Screen,Urine Negative (Negative); Cannabinoid Screen,Urine Negative (Negative); Opiate Screen,Urine Positive (Negative); Phencyclidine Screen,Urine Negative (Negative)
[2019-10-14] MEDS ORDERED: LACTULOSE 20 GM/30 ML UDCUP PO PRN (11:18)
[2019-10-14] MEDS: MORPHINE 4 MG/1 ML VIAL IV PRN ×2 (12:09→21:21)
[2019-10-14] MEDS ORDERED: SODIUM CHLORIDE 0.9% 1,000 ML IV PRN (14:07)
[2019-10-14] MEDS ORDERED: methylPREDNISolone SOD SUC 40 MG/1 ML VIAL IV ONE (19:23)
[2019-10-14] MEDS: diphenhydrAMINE CAP 25 MG CAPSULE PO PRN (20:54)
[2019-10-14] MEDS: cefTRIAXone 1,000 MG in SODIUM CHLORIDE 0.9% 100 ML IV SCH (20:56)
[2019-10-15] MEDS ORDERED: MORPHINE 4 MG/1 ML VIAL IV ONE (00:24)
[2019-10-15] MEDS ORDERED: FUROSEMIDE 40 MG/4 ML VIAL IV ONE (00:24)
[2019-10-15] MEDS: diphenhydrAMINE CAP 25 MG CAPSULE PO PRN (01:29)
[2019-10-15 05:42] LABS: Basophils % 0.8 % (0.0-0.8); Hemoglobin 8.7 GM/DL (14.0-18.0); Immature Granulocytes % 2.4 %; Immature Granulocytes Absolute 0.12 #; Lymphocytes # 0.6 10*3/uL (1.4-4.0); Lymphocytes % 12.1 % (21.2-54.2); Mean Corpuscular HGB Conc 33.5 GM/DL (32-36); Mean Corpuscular Volume 96.7 FL (87-102); Mean Platelet Volume 9.3 FL (9.6-12.0); Monocytes % 11.1 % (1.7-12.7); NRBC # 0.07 10*3/uL; Neutrophils % 73.6 % (38.7-73.9); Platelet Count 99 T/CUMM (130-400); Red Blood Count 2.69 MC/CUMM (3.8-5.5); Red Cell Distribution Width 22.9 % (9.3-17.3)
[2019-10-15] MEDS: LEVOTHYROXINE 50 MCG TABLET PO SCH (05:47)
[2019-10-15 06:08] LABS: PT Patient Result 21.2 SECS (9.8-11.9)
[2019-10-15 06:11] LABS: Albumin 1.8 G/DL (3.4-5.0); Bilirubin,Total 7.1 MG/DL (0.2-1.0); Calcium 8.3 MG/DL (8.5-10.1); Osmolality,Calculated 265.2 MOS/KG (273-304)
[2019-10-15 06:20] LABS: Band Neutrophils 1 % (0-10); Eosinophils 2 % (0-10); Hypochromasia 1+; Lymphocytes 10 % (20-55); Macrocytosis 1+; Nucleated Red Blood Cells 1 (0-5); Segmented Neutrophils 77 % (50-85); Target Cells 1+; Total Cells Counted 100
[2019-10-15 06:21] LABS: Platelet Estimate Decreased
[2019-10-15] MEDS ORDERED: MAGNESIUM SULF RIDER 4 GM in PREMIX 1 EACH IV ONE (08:42)
[2019-10-15] MEDS: SPIRONOLACTONE 100 MG TABLET PO SCH (09:45)
[2019-10-15] MEDS: FUROSEMIDE 40 MG/4 ML VIAL IV SCH (09:49)
[2019-10-15] MEDS: MORPHINE 4 MG/1 ML VIAL IV PRN (09:53)
[2019-10-15] MEDS ORDERED: SODIUM CHLORIDE 0.9% 1,000 ML IV PRN (12:39)
[2019-10-15] MEDS ORDERED: PHYTONADIONE 5 MG/5 ML ORAL.SYR PO ONE (12:39)
[2019-10-15] MEDS: LACTULOSE 20 GM/30 ML UDCUP PO SCH ×2 (13:18→20:43)
[2019-10-15] MEDS: PROPRANOLOL 20 MG TABLET PO SCH ×2 (13:18→20:43)
[2019-10-15] MEDS: cefTRIAXone 1,000 MG in SODIUM CHLORIDE 0.9% 100 ML IV SCH (20:43)
[2019-10-15] MEDS: ENOXAPARIN 40 MG/0.4 ML SYRINGE SUBCUT SCH (21:14)
[2019-10-16 05:12] LABS: Basophils # 0.1 10*3/uL (0.0-0.2); Basophils % 0.6 % (0.0-0.8); Eosinophils # 0.2 10*3/uL (0.0-0.87); Eosinophils % 2.2 % (0.00-10.9); Hematocrit 25.6 VOL% (42.0-52.0); Hemoglobin 8.6 GM/DL (14.0-18.0); Immature Granulocytes % 0.7 %; Immature Granulocytes Absolute 0.06 #; Lymphocytes # 1.9 10*3/uL (1.4-4.0); Lymphocytes % 21.9 % (21.2-54.2); Mean Corpuscular HGB Conc 33.6 GM/DL (32-36); Mean Corpuscular Volume 97.7 FL (87-102); Mean Platelet Volume 10.3 FL (9.6-12.0); Monocytes % 16.2 % (1.7-12.7); NRBC # 0.16 10*3/uL; Neutrophils % 58.4 % (38.7-73.9); Platelet Count 108 T/CUMM (130-400); Red Blood Count 2.62 MC/CUMM (3.8-5.5); Red Cell Distribution Width 22.8 % (9.3-17.3); White Blood Count 8.5 T/CUMM (4-12)
[2019-10-16 05:31] LABS: Albumin 1.7 G/DL (3.4-5.0); Bilirubin,Total 5.4 MG/DL (0.2-1.0); Calcium 8.6 MG/DL (8.5-10.1); Osmolality,Calculated 263.4 MOS/KG (273-304); Total Protein 8.8 G/DL (6.4-8.3)
[2019-10-16 05:33] LABS: Band Neutrophils 1 % (0-10); Eosinophils 5 % (0-10); Hypochromasia 2+; Lymphocytes 20 % (20-55); Nucleated Red Blood Cells 3 (0-5); Segmented Neutrophils 65 % (50-85); Total Cells Counted 100
[2019-10-16 05:34] LABS: Macrocytosis 1+; Platelet Estimate Decreased; Polychromasia Slight; Target Cells Slight
[2019-10-16] MEDS: LEVOTHYROXINE 50 MCG TABLET PO SCH (05:59)
[2019-10-16] MEDS ORDERED: MAGNESIUM SULF RIDER 4 GM in PREMIX 1 EACH IV ONE (08:07)
[2019-10-16] MEDS ORDERED: TISSUE ADHESIVE 1 EACH APPLICATOR TOP ONE (08:46)
[2019-10-16 09:00] LABS: Neutrophils,Peritoneal Fluid 1 %; RBC,Peritoneal Fluid 163 T/CUMM
[2019-10-16] MEDS: LACTULOSE 20 GM/30 ML UDCUP PO SCH (10:04)
[2019-10-16] MEDS: FUROSEMIDE 40 MG/4 ML VIAL IV SCH (10:04)
[2019-10-16] MEDS: SPIRONOLACTONE 100 MG TABLET PO SCH (10:04)
[2019-10-16] MEDS: PROPRANOLOL 20 MG TABLET PO SCH (10:04)
[2019-10-16] MEDS ORDERED: ALBUMIN 25% 25 GM in PREMIX 1 EACH IV ONE (10:08)
[2019-10-16 11:39] VITALS: BP 111/70
[2019-10-16] MEDS: MORPHINE 4 MG/1 ML VIAL IV PRN (12:17)
== END 2019-10-16 16:38 | disposition home or self-care (01) | DRG 433 ==
LOC: N.ED 15:33 → N.EDINP 15:33 → N.3E 21:12
PROVIDERS: ADMIT Internal Medicine; ATTEND Internal Medicine